=== PATIENT | male | born 1960 | race Caucasian/White ===

== ENCOUNTER → 2023-04-22 06:21 | Outpatient (REF) | payer BC, SELFPAY ==
[2023-04-22 09:31] LABS: % Basophils 0.5 % (0-2); % Eosinophils 2.6 % (0-6); % Immature Granulocytes 0.2 % (0-0.5); % Lymphocytes 36.5 % (20.5-51.1); % Monocytes 6.8 % (1.7-9.3); % Neutrophils 53.4 % (42.2-75.2); Absolute Basophils 0.1 10^3/uL (0-0.2); Absolute Eosinophils 0.3 10^3/uL (0-0.7); Absolute Lymphocytes 3.5 10^3/uL (1.2-3.4); Absolute Monocytes 0.6 10^3/uL (0.1-0.6); Hematocrit 44.2 % (39.0-52.0); Hemoglobin 15.6 g/dL (13.0-18.0); Mean Corp Hgb Conc. 35.3 g/dL (33.0-37.0); Mean Corpuscular Hgb 31.5 pg (27.0-31.0); Mean Corpuscular Volume 89.1 fL (80.0-94.0); Mean Platelet Volume 10.1 fL (7.4-10.4); Nucleated Red Blood Cells % 0 % (-); Platelet Count 289 10^3/uL (130-400); Red Blood Cell Count 4.96 10^6/uL (4.70-6.10); Red Cell Dist. Width 11.9 % (11.5-14.5); White Blood Cell Count 9.5 10^3/uL (4.8-10.8)
[2023-04-22 09:34] LABS: Urine Albumin Negative (Neg - Trace); Urine Bilirubin Negative (Negative); Urine Character Clear (Clear); Urine Color Yellow; Urine Glucose Negative (Negative); Urine Ketone Trace (Negative); Urine Leukocyte Trace (Negative); Urine Nitrite Negative (Negative); Urine Occult Blood Negative (Negative); Urine Specific Gravity 1.015 (<1.030); Urine Urobilinogen Negative (Neg - 1+)
[2023-04-22 09:42] LABS: Urine Bacteria Few (Negative); Urine Red Blood Cell 0-2 /HPF (0-2); Urine White Cell 0-2 /HPF (0-5)
[2023-04-22 10:03] LABS: ALT (SGPT) 32 U/L (0-50); AST (SGOT) 30 U/L (17-59); Albumin 4.7 g/dl (3.5-5.0); Alkaline Phosphatase 67 U/L (38-126); Blood Urea Nitrogen 26 mg/dl (9-20); Calcium 9.5 mg/dl (8.4-10.2); Carbon Dioxide 25 mmol/L (22-30); Chloride 104 mmol/L (98-107); Glucose 108 mg/dl (70-99); HDL Cholesterol 71 mg/dl; LDL Cholesterol, Calculated 119 mg/dl; Potassium 4.8 mmol/L (3.5-5.1); Sodium 136 mmol/L (135-145); Total Bilirubin 0.7 mg/dl (0.2-1.3); Total Cholesterol 210 mg/dl (50-199); Total Protein 7.8 g/dl (6.3-8.2); Triglyceride 100 mg/dl (10-149); Very Low Density Lipoprotein 20 mg/dl (0-30); eGFR > 60.00
[2023-04-22 10:28] LABS: TSH 1.62 uIU/ml (0.47-4.68)
[2023-04-22 10:30] LABS: PSA, Total - Screen 1.13 ng/ml (0.0-4.0)
== END ==
LOC: HWLAB 06:21
PROVIDERS: ATTENDING PHYSICIAN Family Medicine
DX: Z00.00 Encounter for general adult medical examination without abnormal findings (principal); F17.200 Nicotine dependence, unspecified, uncomplicated; R73.01 Impaired fasting glucose; E78.00 Pure hypercholesterolemia, unspecified; Z12.5 Encounter for screening for malignant neoplasm of prostate
CPT/HCPCS: 36415; 80053; 80061; 81003; 81015; 84443; 85025; G0103

== ENCOUNTER → 2023-05-07 07:07 | Outpatient (REF) | payer BC, SELFPAY | LOC: HWRAD 07:07 | PROVIDERS: ATTENDING PHYSICIAN Family Medicine | DX: E04.1 Nontoxic single thyroid nodule (principal) | CPT/HCPCS: 76536 ==

== ENCOUNTER → 2024-04-28 06:48 | Outpatient (REF) | payer BC, SELFPAY ==
[2024-04-28 10:09] LABS: % Basophils 0.5 % (0-2); % Eosinophils 2.9 % (0-6); % Immature Granulocytes 0.1 % (0-0.5); % Lymphocytes 37.8 % (20.5-51.1); % Neutrophils 51.7 % (42.2-75.2); Absolute Eosinophils 0.2 10^3/uL (0-0.7); Absolute Monocytes 0.6 10^3/uL (0.1-0.6); Hematocrit 42.2 % (39.0-52.0); Mean Corp Hgb Conc. 35.5 g/dL (33.0-37.0); Mean Corpuscular Hgb 31.2 pg (27.0-31.0); Mean Corpuscular Volume 87.7 fL (80.0-94.0); Mean Platelet Volume 10.5 fL (7.4-10.4); Nucleated Red Blood Cells % 0 % (-); Platelet Count 247 10^3/uL (130-400); Red Blood Cell Count 4.81 10^6/uL (4.70-6.10); White Blood Cell Count 7.8 10^3/uL (4.8-10.8)
[2024-04-28 10:23] LABS: ALT (SGPT) 28 U/L (0-50); AST (SGOT) 25 U/L (17-59); Albumin 4.6 g/dl (3.5-5.0); Alkaline Phosphatase 62 U/L (38-126); Blood Urea Nitrogen 24 mg/dl (9-20); Calcium 9.8 mg/dl (8.4-10.2); Carbon Dioxide 25 mmol/L (22-30); Chloride 102 mmol/L (98-107); Glucose 117 mg/dl (70-99); HDL Cholesterol 66 mg/dl; LDL Cholesterol, Calculated 96 mg/dl; Potassium 4.6 mmol/L (3.5-5.1); Sodium 137 mmol/L (135-145); Total Bilirubin 0.8 mg/dl (0.2-1.3); Total Cholesterol 173 mg/dl (50-199); Total Protein 7.3 g/dl (6.3-8.2); Triglyceride 57 mg/dl (10-149); Very Low Density Lipoprotein 11 mg/dl (0-30); eGFR > 60.00
[2024-04-28 10:53] LABS: PSA, Total - Screen 1.44 ng/ml (0.0-4.0); TSH 1.16 uIU/ml (0.47-4.68)
== END ==
LOC: HWLAB 06:48
PROVIDERS: ATTENDING PHYSICIAN Family Medicine
DX: Z12.5 Encounter for screening for malignant neoplasm of prostate (principal); E04.1 Nontoxic single thyroid nodule; Z00.00 Encounter for general adult medical examination without abnormal findings; R73.01 Impaired fasting glucose; E78.00 Pure hypercholesterolemia, unspecified
CPT/HCPCS: 36415; 80053; 80061; 84443; 85025; G0103

== ENCOUNTER 2025-01-29 06:26 | Day surgery (SDC) | payer BC, SELFPAY | END 2025-01-29 09:39 | disposition home or self-care (01) | LOC: GI 06:26 | PROVIDERS: ATTENDING PHYSICIAN Internal Medicine Gastroenterology | DX: Z12.11 Encounter for screening for malignant neoplasm of colon (principal); K64.8 Other hemorrhoids; K57.30 Diverticulosis of large intestine without perforation or abscess without bleeding; D12.0 Benign neoplasm of cecum; D12.4 Benign neoplasm of descending colon; K63.5 Polyp of colon; Z86.0100 Personal history of colon polyps, unspecified | CPT/HCPCS: 45385; 45380; 88305 ==